=== PATIENT | male | born 1950 ===

== ENCOUNTER → 2016-12-23 | Outpatient (CLI) | payer MEDICARE, BC ==
--- NOTE | 2016-12-23 15:46 | RADRPT ---
EXAM DATE/TIME: 12/23/2016 12:53 [place] COMPARISON : No previous studies available for comparison. INDICATIONS : Evaluate images and chart for possible cryo-ablation IMAGING STUDIES: The patient's CT examination from [facility] was reviewed. These demonstrate a 3.2 x 3.2 cm r enal mass arising from the lower pole of the right kidney. There is a 3.7 x 3.1 cm mass. Arising from the anterior aspect of the left kidney. ASSESSMENT: The lesion on the right is readily amenable to biopsy and cryoablation. The lesion on the left kidney is on the anterior aspect of the kidney and may not have a clear window for treatment. PLAN: We will schedule patient for consultation and biopsy/treatment of the lesion on the right. We will have the patient return in approximately 10-15 days post treatment of the right lesion and pl varun the patient in multiple positions in an attempt to find a clear window to treat the lesion on the left. If no window can be found patient will have to undergo laparoscopic or open procedure. Bharath Sanchez MD on December 23, 2016 at 15:39 Board Certified Radiologist. This report was verified electronically.
== END ==
LOC: HRAD 11:54
PROVIDERS: ATTEND Urology
DX: N28.89 Other specified disorders of kidney and ureter (principal)